=== PATIENT | female | born 1970 | race Caucasian/White ===

== ENCOUNTER → 2020-02-09 | Outpatient (CLI) | payer BC ==
--- NOTE | 2020-02-09 12:06 | MM ---
Reason for exam: screening (asymptomatic). Last mammogram was performed 7 years and 4 months ago. Physical Findings: A clinical breast exam by your physician is recommended on an annual basis and results should be correlated with mammographic findings. MG 3D Screening Mammo W/Cad Bilateral CC and MLO view(s) were taken. Prior study comparison: October 15, 2012, mammogram, performed at [facility]. October 04, 2010, mammogram, performed at [facility]. There are scattered fibroglandular densities. There is chronic nodularity bilaterally, greater in the right breast. There is no discrete abnormality. ASSESSMENT: Benign, BI-RAD 2 RECOMMENDATION: Routine screening mammogram of both breasts in 1 year.
== END | disposition home or self-care (01) ==
LOC: RADMAMWWP 10:55
PROVIDERS: ATTEND Obstetrics & Gynecology Obstetrics
DX: Z12.31 Encounter for screening mammogram for malignant neoplasm of breast (principal)
CPT/HCPCS: 77063; 77067

== ENCOUNTER → 2022-08-15 | Outpatient (CLI) | payer BC ==
--- NOTE | 2022-08-16 18:50 | MM ---
Reason for Exam: Screening (asymptomatic). Last mammogram was performed 2 year(s) and 6 month(s) ago. Patient History: Menarche at age 14. First Full-Term at age 32. Late child-bearing (after 30). Perimenopausal. Risk Values: Rubia 5 year model risk: 1.3%. NCI Lifetime model risk: 12.3%. Prior Study Comparison: 10/04/2010 Screening Mammogram, [facility]. 10/15/2012 Screening Mammogram, [facility]. 02/09/2020 Bilateral Screening Mammogram, [facility]. Tissue Density: There are scattered fibroglandular densities. Findings: Analyzed By CAD. Pattern appears symmetrical and stable. No significant interval change is evident. No suspicious groups of microcalcifications, spiculated or lobular masses, architectural distortion or other secondary signs of malignancy are mammographically apparent. Overall Assessment: Negative, BI-RAD 1 Management: Screening Mammogram of both breasts in 1 year. A negative mammogram report should not preclude additional follow up of suspicious palpable abnormalities. Patient should continue monthly self breast exam. A clinical breast exam by your physician is recommended on an annual basis and results should be correlated with mammographic findings. Electronically signed and approved by: Nick Hollis D.O. Radiologis
== END | disposition home or self-care (01) ==
LOC: RADMAMWWP 14:32
PROVIDERS: ATTEND Obstetrics & Gynecology Obstetrics
DX: Z12.31 Encounter for screening mammogram for malignant neoplasm of breast (principal)
CPT/HCPCS: 77067

== ENCOUNTER → 2023-08-22 | Outpatient (CLI) | payer BC ==
--- NOTE | 2023-08-23 10:26 | MM ---
Reason for Exam: Screening (asymptomatic). Last screening mammogram was performed 12 month(s) ago. Patient History: Menarche at age 14. First Full-Term at age 32. Late child-bearing (after 30). Postmenopausal. Risk Values: Rubia 5 year model risk: 1.4%. NCI Lifetime model risk: 12.0%. Prior Study Comparison: 10/15/2012 Screening Mammogram, [facility]. 02/09/2020 Bilateral Screening Mammogram, [facility]. 08/15/2022 Bilateral MG screening mammo w CAD, [facility]. Tissue Density: There are scattered areas of fibroglandular density. Findings: Analyzed By CAD. New asymmetric density seen best on the left CC view approximately 11.7 cm from the nipple at approximately 6:00. Additional views are recommended. No suspicious calcifications within either breast. Overall Assessment: Incomplete: need additional imaging evaluation, BI-RAD 0 Management: Diagnostic Mammogram of the left breast. . Patient should continue monthly self-breast exams. A clinical breast exam by your physician is recommended on an annual basis. This exam should not preclude additional follow-up of suspicious palpable abnormalities. Note on Rubia scores and lifetime risk: 1. A Rubia score greater than 3% is considered moderate risk. If this is the case, consider specialist referral to assess eligibility for a risk reducing agent. 2. If overall lifetime risk for the development of breast cancer is 20% or higher, the patient may qualify for future screening with alternating mammogram and breast MRI. Electronically signed and approved by: Nadeem Acosta M.D. Radiologis
== END | disposition home or self-care (01) ==
LOC: RADMAMWWP 12:48
PROVIDERS: ATTEND Obstetrics & Gynecology Obstetrics
DX: Z12.31 Encounter for screening mammogram for malignant neoplasm of breast (principal); Z78.0 Asymptomatic menopausal state
CPT/HCPCS: 77067

== ENCOUNTER → 2023-08-27 | Outpatient (CLI) | payer BC ==
--- NOTE | 2023-08-27 08:51 | MM ---
Reason for Exam: Additional evaluation requested from abnormal screening. Last screening mammogram was performed less than 1 month ago. Patient History: Menarche at age 14. First Full-Term at age 32. Late child-bearing (after 30). Postmenopausal. Risk Values: Rubia 5 year model risk: 1.4%. NCI Lifetime model risk: 12.0%. Tissue Density: Left: There are scattered areas of fibroglandular density. Findings: Analyzed By CAD. Persistent 8 mm nodular density lower inner left breast 11.5 cm from the nipple. Ultrasound is recommended. Overall Assessment: Incomplete: need additional imaging evaluation, BI-RAD 0 Management: Diagnostic Breast Ultrasound of the left breast. . Results were given to the patient verbally at the time of exam. Patient should continue monthly self-breast exams. A clinical breast exam by your physician is recommended on an annual basis. This exam should not preclude additional follow-up of suspicious palpable abnormalities. Note on Rubia scores and lifetime risk: 1. A Rubia score greater than 3% is considered moderate risk. If this is the case, consider specialist referral to assess eligibility for a risk reducing agent. 2. If overall lifetime risk for the development of breast cancer is 20% or higher, the patient may qualify for future screening with alternating mammogram and breast MRI. Electronically signed and approved by: Nadeem Acosta M.D. Radiologis
--- NOTE | 2023-08-27 09:30 | USB ---
Reason for Exam: Additional evaluation requested from abnormal screening. Patient History: Menarche at age 14. First Full-Term at age 32. Late child-bearing (after 30). Postmenopausal. Risk Values: Rubia 5 year model risk: 1.4%. NCI Lifetime model risk: 12.0%. Technique: Method: Targeted. Prior Study Comparison: 02/09/2020 Bilateral Screening Mammogram, [facility]. 08/15/2022 Bilateral MG screening mammo w CAD, [facility]. 08/22/2023 Bilateral MG screening mammo w CAD, [facility]. Findings: The medial section of the breast of the left breast, the axilla of the left breast and the retroareolar of the left breast were scanned. Curvilinear structure left 6:00 position 8 cm from the nipple appears to reflect a mildly prominent ducts. Hyperechoic lesion at the left 10:00 position 12 cm from the nipple measuring 5 mm is felt to be compatible with lipoma. 6 month follow-up mammogram and ultrasound is advised. Overall Assessment: Probably benign, BI-RAD 3 Management: Diagnostic Breast Ultrasound of the left breast in 6 months. A clinical breast exam by your physician is recommended on an annual basis and results should be correlated with mammographic findings. This exam should not preclude additional follow-up of suspicious palpable abnormalities. Results were given to the patient verbally at the time of exam. Electronically signed and approved by: Nadeem Acosta M.D. Radiologis
== END | disposition home or self-care (01) ==
LOC: RADMAMWWP 08:23
PROVIDERS: ATTEND Obstetrics & Gynecology Obstetrics
DX: Z12.31 Encounter for screening mammogram for malignant neoplasm of breast (principal); R92.8 Other abnormal and inconclusive findings on diagnostic imaging of breast; R92.322 Mammographic fibroglandular density, left breast; Z78.0 Asymptomatic menopausal state
CPT/HCPCS: 77061; 77065

== ENCOUNTER → 2024-02-25 | Outpatient (CLI) | payer BC ==
--- NOTE | 2024-02-25 10:32 | USB ---
Reason for Exam: Clinical finding. Patient History: Menarche at age 14. First Full-Term at age 32. Late child-bearing (after 30). Postmenopausal. Risk Values: Rubia 5 year model risk: 1.4%. NCI Lifetime model risk: 12.0%. Technique: Method: Targeted. Prior Study Comparison: 08/15/2022 Bilateral MG screening mammo w CAD, [facility]. 08/22/2023 Bilateral MG screening mammo w CAD, [facility]. 08/27/2023 Left MG 3D work up w/cad , [facility]. Findings: The upper inner quadrant of the left breast, the axilla of the left breast and the retroareolar of the left breast were scanned. Targeted ultrasound left breast 6:00 to 10:00 position including scanning of the subareolar region and axilla. At the 10:00 position, there is a stable oval echogenic area measuring 4 mm, 12 cm below, possible tiny lipoma versus island of dense tissue. At the 6:00 position, 8 images from the nipple, redemonstrated 9 mm possible cyst cluster or duct ectasia, unchanged from prior No other solid or cystic lesion or axillary lymphadenopathy. Overall Assessment: Probably benign, BI-RAD 3 Management: Diagnostic Mammogram of both breasts in 6 months. Total one-year follow-up left breast and annual exam of the right breast. A clinical breast exam by your physician is recommended on an annual basis and results should be correlated with mammographic findings. This exam should not preclude additional follow-up of suspicious palpable abnormalities. Results were given to the patient verbally at the time of exam. [facility], , 02/25/2024 10:28 AM. Electronically signed and approved by: Kamille Varela M.D. Radiologist
== END | disposition home or self-care (01) ==
LOC: RADUSWWP 09:45
PROVIDERS: ATTEND Obstetrics & Gynecology Obstetrics
DX: R92.8 Other abnormal and inconclusive findings on diagnostic imaging of breast (principal); Z78.0 Asymptomatic menopausal state

== ENCOUNTER → 2024-08-27 | Outpatient (CLI) | payer BC ==
--- NOTE | 2024-08-27 11:33 | MM ---
Reason for Exam: Follow-up at short interval from prior study. Last screening mammogram was performed 12 month(s) ago. Patient History: Menarche at age 14. First Full-Term at age 32. Late child-bearing (after 30). Postmenopausal. Risk Values: Rubia 5 year model risk: 1.5%. NCI Lifetime model risk: 11.8%. Prior Study Comparison: 02/09/2020 Bilateral Screening Mammogram, [facility]. 08/15/2022 Bilateral MG screening mammo w CAD, [facility]. 08/22/2023 Bilateral MG screening mammo w CAD, [facility]. 08/27/2023 Left US breast workup limited LT, [facility]. 08/27/2023 Left MG 3D work up w/cad LT, [facility]. 02/25/2024 Left US breast limited LT, [facility]. Tissue Density: The breasts are almost entirely fatty. Findings: Analyzed By CAD. Area of concern/asymmetry compresses out on spot compression imaging. No suspicious masses, calcifications or distortions. Overall Assessment: Benign, BI-RAD 2 Management: Screening Mammogram of both breasts in 1 year. Results were given to the patient verbally at the time of exam. Patient should continue monthly self-breast exams. A clinical breast exam by your physician is recommended on an annual basis. This exam should not preclude additional follow-up of suspicious palpable abnormalities. Note on Rubia scores and lifetime risk: 1. A Rubia score greater than 3% is considered moderate risk. If this is the case, consider specialist referral to assess eligibility for a risk reducing agent. 2. If overall lifetime risk for the development of breast cancer is 20% or higher, the patient may qualify for future screening with alternating mammogram and breast MRI. [facility], , 08/27/2024 10:36 AM. Electronically signed and approved by: Dain Elias DO
== END | disposition home or self-care (01) ==
LOC: RADMAMWWP 10:17
PROVIDERS: ATTEND Obstetrics & Gynecology Obstetrics
DX: R92.8 Other abnormal and inconclusive findings on diagnostic imaging of breast (principal); R92.313 Mammographic fatty tissue density, bilateral breasts; Z78.0 Asymptomatic menopausal state
CPT/HCPCS: 77062; 77066